=== PATIENT | female | born 2000 | race African-American/Black ===

== ENCOUNTER 2022-02-15 05:44 | Inpatient (IN) ==
[2022-02-15] MEDS ORDERED: OXYTOCIN/LR 20 UNIT/1,000 ML BAG IV ONE (07:35)
[2022-02-15] MEDS ORDERED: CARBOPROST TROMETHAMINE 250 MCG/ML AMP IM PRN (07:35)
[2022-02-15] MEDS ORDERED: miSOPROStoL 200 MCG TABLET RECTAL PRN (07:35)
[2022-02-15] MEDS ORDERED: BUTORPHANOL 2 MG/ML VIAL IV PRN (07:35)
[2022-02-15] MEDS ORDERED: METHYLERGONOVINE 0.2 MG/1 ML AMP IM PRN (07:35)
[2022-02-15] MEDS ORDERED: ONDANSETRON 4 MG/2 ML VIAL IV PRN (07:35)
[2022-02-15] MEDS ORDERED: MEPERIDINE 50 MG/1 ML VIAL IV PRN (07:35)
[2022-02-15] MEDS ORDERED: TRANEXAMIC ACID 1,000 MG in SODIUM CHLORIDE 0.9% 100 ML IV PRN (07:35)
[2022-02-15] MEDS ORDERED: OXYTOCIN/LR 20 UNIT/1,000 ML BAG IV SCH (08:00)
[2022-02-15] MEDS ORDERED: ceFAZolin 2,000 MG/50 ML DUPLEX IV ONE (08:00)
[2022-02-15 08:02] LABS: Basophils % 0.2 % (0.0-0.8); Eosinophils # 0.1 10*3/uL (0.0-0.87); Eosinophils % 0.7 % (0.00-10.9); Hematocrit 30.1 VOL% (35.7-47.0); Hemoglobin 9.1 GM/DL (12.0-16.0); Immature Granulocytes % 0.8 %; Immature Granulocytes Absolute 0.08 #; Lymphocytes # 2.1 10*3/uL (1.4-4.0); Lymphocytes % 20.9 % (21.3-54.2); Mean Corpuscular HGB Conc 30.2 GM/DL (32-36); Mean Corpuscular Volume 72.7 FL (87-102); NRBC # 0.04 10*3/uL; Neutrophils % 67.4 % (38.7-73.9); Platelet Count 199 T/CUMM (130-400); Red Blood Count 4.14 MC/CUMM (3.8-5.5); Red Cell Distribution Width 19.7 % (9.3-17.3); White Blood Count 10.2 T/CUMM (4-12)
[2022-02-15] MEDS: LACTATED RINGERS 1,000 ML IV SCH ×3 (08:05→19:45)
[2022-02-15] MEDS ORDERED: ePHEDrine 50 MG/ML VIAL IV PRN (09:29)
[2022-02-15] MEDS ORDERED: FAMOTIDINE 20 MG/2 ML VIAL IV ONE (09:29)
[2022-02-15] MEDS ORDERED: hydrOXYzine HCL 25 MG/1 ML VIAL IM PRN (09:29)
[2022-02-15] MEDS ORDERED: CITRIC ACID/SODIUM CITRATE 30 ML UDCUP PO ONE (09:29)
[2022-02-15] MEDS ORDERED: NALOXONE 0.4 MG/ML VIAL IV PRN (09:29)
[2022-02-15] MEDS ORDERED: diphenhydrAMINE 50 MG/1 ML VIAL IV PRN (09:29)
[2022-02-15] MEDS ORDERED: PROMETHAZINE 25 MG/1 ML VIAL IM PRN (09:29)
[2022-02-15] MEDS ORDERED: fentaNYL 2 MCG/ROPIV 0.2% EPID 100 ML EPIDURAL SCH (09:30)
[2022-02-15 12:54] LABS: Urine Appearance Clear (Clear); Urine Color Yellow (Yellow)
[2022-02-15 12:55] LABS: Bacteria,Urine Rare /HPF (Few); Bilirubin,Urine Negative (Negative); Blood, Urine Negative (Negative); Glucose,Urine (UA) Negative (Negative); Ketones,Urine Negative (Negative); Mucus,Urine Rare /LPF (Occasional); Nitrite,Urine Negative (Negative); Protein,Urine Negative (Negative); Squamous Epithelial Cell,Urine Rare /HPF (0-10); Urine Specific Gravity 1.015 (1.001-1.035); Urine Urobilinogen 0.2 eU/dL (<2.0); Urine pH 7.5 (4.5-8.0)
[2022-02-16] MEDS ORDERED: SODIUM CHLORIDE 0.9% 0 ML IV ONE (00:42)
[2022-02-16] MEDS ORDERED: TRANEXAMIC ACID 1,000 MG/10 ML VIAL ONE (00:42)
[2022-02-16] MEDS ORDERED: miSOPROStoL 200 MCG TABLET ONE (00:42)
[2022-02-16] MEDS ORDERED: CARBOPROST TROMETHAMINE 250 MCG/ML AMP IM ONE (00:43)
[2022-02-16] MEDS ORDERED: METHYLERGONOVINE 0.2 MG/1 ML AMP ONE (00:43)
[2022-02-16 03:11] LABS: Cord Venous Blood HCO3 18.4 MMOL/L; Cord Venous Blood PCO2 47.1 MMHG; Cord Venous Blood PO2 23.3
[2022-02-16] MEDS ORDERED: RHO(D) IMMUNE GLOBULIN 300 MCG SYRINGE IM ONE (03:34)
[2022-02-16] MEDS ORDERED: MEASLES/MUMPS/RUBELLA VACCINE 0.5 ML VIAL SUBCUT ONE (03:34)
[2022-02-16] MEDS ORDERED: DIPH/TET/ACEL PERT BOOSTER VACCINE 0.5 ML VIAL IM ONE (03:34)
[2022-02-16] MEDS ORDERED: HYDROCORTISONE 2.5% RECTAL CREAM 30 GM TUBE TOP PRN (03:34)
[2022-02-16] MEDS ORDERED: OXYTOCIN/LR 20 UNIT/1,000 ML BAG IV ONE (03:34)
[2022-02-16] MEDS ORDERED: WITCH HAZEL PADS 100/JAR TOP PRN (03:34)
[2022-02-16] MEDS ORDERED: BISACODYL 10 MG SUPP RECTAL PRN (03:34)
[2022-02-16] MEDS ORDERED: ONDANSETRON 4 MG/2 ML VIAL IV PRN (03:34)
[2022-02-16] MEDS ORDERED: ACETAMINOPHEN 325 MG TABLET PO PRN (03:34)
[2022-02-16] MEDS ORDERED: oxyCODONE/ACETAMINOPHEN 5-325 MG TABLET PO PRN ×2 (03:34)
[2022-02-16] MEDS ORDERED: BENZOCAINE 20%/MENTHOL 0.5% SPRAY 56 GM CAN TOP PRN (03:34)
[2022-02-16] MEDS ORDERED: LANOLIN 50% CREAM 0.3 OZ TUBE TOP PRN (03:34)
[2022-02-16 06:31] LABS: Basophils % 0.2 % (0.0-0.8); Hematocrit 30.5 VOL% (35.7-47.0); Immature Granulocytes Absolute 0.17 #; Lymphocytes % 5.7 % (21.3-54.2); Mean Corpuscular HGB Conc 29.5 GM/DL (32-36); Mean Corpuscular Volume 74.2 FL (87-102); Monocytes # 1.5 10*3/uL (0.11-0.8); Monocytes % 8.3 % (1.7-12.7); NRBC # 0.03 10*3/uL; Neutrophils % 84.8 % (38.7-73.9); Platelet Count 187 T/CUMM (130-400); Red Blood Count 4.11 MC/CUMM (3.8-5.5); Red Cell Distribution Width 19.9 % (9.3-17.3); White Blood Count 17.8 T/CUMM (4-12)
[2022-02-16] MEDS: DOCUSATE SODIUM 100 MG CAPSULE PO SCH ×2 (08:33→21:16)
[2022-02-16] MEDS: IBUPROFEN 800 MG TABLET PO PRN (08:35)
[2022-02-16] MEDS: MAGNESIUM HYDROXIDE SUSP 30 ML UDCUP PO PRN (23:55)
[2022-02-17] MEDS: IBUPROFEN 800 MG TABLET PO PRN ×2 (01:38→21:08)
[2022-02-17] MEDS: DOCUSATE SODIUM 100 MG CAPSULE PO SCH ×2 (08:40→21:07)
[2022-02-18] MEDS ORDERED: MULTIVITAMIN (PRENATAL) TABLET PO SCH (09:00)
[2022-02-18] MEDS: DOCUSATE SODIUM 100 MG CAPSULE PO SCH (09:16)
[2022-02-18] MEDS: MAGNESIUM HYDROXIDE SUSP 30 ML UDCUP PO PRN (09:16)
[2022-02-18] MEDS ORDERED: DIPH/TET/ACEL PERT BOOSTER VACCINE 0.5 ML VIAL IM ONE (11:59)
[2022-02-18 12:05] VITALS: BP 118/68
== END 2022-02-18 15:55 | disposition home or self-care (01) | DRG 560 ==
LOC: N.LD 05:44 → N.OB 02-16 05:51
PROVIDERS: ADMIT Obstetrics & Gynecology; ATTEND Obstetrics & Gynecology